=== PATIENT | male | born 1960 | race Caucasian/White ===

== ENCOUNTER → 2016-12-03 | Outpatient (CLI) | payer BC ==
[2016-12-03 10:06] LABS: EKG EKG PERFORMED
[2016-12-03 10:36] LABS: Basophils # (A) 0.1 k/uL (0-0.2); Basophils % (A) 2 %; CH 30.5; CHCM 34.7; Eosinophils # (A) 0.2 k/uL (0-0.7); Eosinophils % (A) 5 %; HCT 41.3 % (39.0-53.0); HDW 2.69; HGB 14.2 gm/dL (13.0-17.5); Luc # (Auto) 0.13; Luc % (Auto) 3; Lymphocytes # (A) 1.4 k/uL (1.0-4.8); Lymphocytes % (A) 36 %; MCH 30.4 pg (25.0-35.0); MCHC 34.4 g/dL (31.0-37.0); MCV 88.3 fL (80.0-100.0); Monocytes # (A) 0.2 k/uL (0-1.0); Monocytes % (A) 6 %; Neutrophils # (A) 1.9 k/uL (1.3-7.7); Neutrophils % (A) 48 %; RBC 4.68 m/uL (4.30-5.90); RDW 13.6 % (11.5-15.5); WBC (Perox) 4.15
[2016-12-03 10:37] LABS: Appearance,Urine Clear (Clear); Bilirubin,Urine Negative (Negative); Glucose,Urine (UA) Negative (Negative); Ketones,Urine Negative (Negative); Leukocyte Esterase,Urine Negative (Negative); Nitrite,Urine Negative (Negative); PH, Urine 7.5 (5.0-8.0); Protein,Urine Negative (Negative); Specific Gravity,Urine 1.009 (1.001-1.035); UA Billing (MACRO vs. MICRO) CHEM; Urobilinogen,Urine <2.0 mg/dL (<2.0)
[2016-12-03 10:42] LABS: Partial Thromboplastin Time 24.1 sec (22.0-30.0); Prothrombin Time 10.2 sec (9.0-12.0)
[2016-12-03 10:53] LABS: ALT 33 U/L (21-72); AST 25 U/L (17-59); Alkaline Phosphatase 82 U/L (38-126); Anion Gap 13 mmol/L; Blood Urea Nitrogen 14 mg/dL (9-20); Calcium 9.6 mg/dL (8.4-10.2); Carbon Dioxide 26 mmol/L (22-30); Chloride 102 mmol/L (98-107); Glucose 102 mg/dL (74-99); Non-African American GFR(MDRD) >60 (>60 ml/min/1.73 sqM); Potassium 3.9 mmol/L (3.5-5.1); Sodium 141 mmol/L (137-145); Total Bilirubin 0.7 mg/dL (0.2-1.3); Total Protein 7.7 g/dL (6.3-8.2)
== END | disposition home or self-care (01) ==
LOC: LABPAT 09:43
PROVIDERS: ATTEND Orthopaedic Surgery Sports Medicine
DX: Z01.810 Encounter for preprocedural cardiovascular examination (principal); Z01.812 Encounter for preprocedural laboratory examination
CPT/HCPCS: 36415; 80053; 81003; 85025; 85610; 85730; 87070; 93005

== ENCOUNTER 2016-12-11 09:36 | Inpatient (IN) | payer BC ==
[2016-12-05 17:04] VITALS: BMI 34.0
[~2016-12-11 09:36] MED LIST: ACETAMINOPHEN TAB 500 MG TAB PO ONE; DEXAMETHASONE SOD PHOSPHATE 10 MG/ML 1 ML VIAL IV ONE; FAMOTIDINE 20 MG/2 ML VIAL IV PRN; HYDROmorphone 1 MG/ML 1 ML SYRINGE IVP PRN; LIDOCAINE 1% 20 ML VIAL (10MG/ML) FOR IV START INTRADERMA PRN; MELOXICAM 7.5 MG TAB PO ONE; MIDAZOLAM 2 MG/2 ML VIAL IV PRN; ONDANSETRON 4 MG/2 ML VIAL IVP ONE; TRANEXAMIC ACID 1,000 MG in SODIUM CHLORIDE 0.9% 100 ML IVPB ONE; ceFAZolin 2 GM in SODIUM CHLORIDE 0.9% 100 ML IVPB ONE
[2016-12-11] MEDS: LACTATED RINGERS 1,000 ML IV SCH ×3 (11:09→23:52)
[2016-12-11] MEDS ORDERED: ePHEDrine 50 MG/ML 1 ML AMP ONE (13:00)
[2016-12-11] MEDS ORDERED: diphenhydrAMINE 50 MG/ML 1 ML VIAL ONE (13:00)
[2016-12-11] MEDS ORDERED: SODIUM CHLORIDE 0.9% 100 ML BAG ONE (13:00)
[2016-12-11] MEDS ORDERED: fentaNYL (PF) 50 MCG/ML 2 ML AMP ONE (13:00)
[2016-12-11] MEDS ORDERED: MIDAZOLAM 2 MG/2 ML VIAL ONE (13:00)
[2016-12-11] MEDS ORDERED: PHENYLEPHRINE-0.9% NACL SYG 1 MG/10 ML SYRINGE ONE (13:00)
[2016-12-11] MEDS ORDERED: TRANEXAMIC ACID 1,000 MG/10 ML VIAL ONE (13:00)
[2016-12-11] MEDS: ROPIVACAINE 246.25 MG, EPINEPHrine 0.5 MG, KETOROLAC 30 MG, cloNIDine HCL/PF 80 MCG, WA... MISCELLANE ONE ×10 (13:35→14:31)
[2016-12-11] MEDS ORDERED: ceFAZolin 3,000 MG in SODIUM CHLORIDE 0.9% IRRIGATIO 3,000 ML IRRIGATION ONE (13:36)
[2016-12-11] MEDS ORDERED: LACTATED RINGERS 1,000 ML IV ONE (13:52)
[2016-12-11] MEDS ORDERED: HYDROcodone/APAP 7.5-325MG 1 EACH TAB PO PRN ×2 (14:38)
[2016-12-11] MEDS ORDERED: MAGNESIUM HYDROXIDE 2,400 MG/10 ML CUP PO PRN (14:38)
[2016-12-11] MEDS ORDERED: hydrOXYzine PAMOATE 25 MG CAP PO PRN (14:38)
[2016-12-11] MEDS ORDERED: TEMAZEPAM 15 MG CAP PO PRN (14:38)
[2016-12-11] MEDS ORDERED: ACETAMINOPHEN TAB 325 MG TAB PO PRN (14:38)
[2016-12-11] MEDS ORDERED: ONDANSETRON 4 MG/2 ML VIAL IVP PRN (14:38)
[2016-12-11] MEDS ORDERED: traMADol 50 MG TAB PO PRN (14:38)
[2016-12-11] MEDS ORDERED: BISACODYL 10 MG SUPP RECTAL PRN (14:38)
[2016-12-11] MEDS ORDERED: NALOXONE 0.4 MG/ML 1 ML VIAL IV PRN ×2 (14:38→15:42)
[2016-12-11] MEDS ORDERED: NA PHOS,M-B/NA PHOS,DI-BA 133 ML ENEMA RECTAL PRN (14:38)
[2016-12-11] MEDS ORDERED: HYDROmorphone 1 MG/ML 1 ML SYRINGE IVP PRN ×3 (14:38)
[2016-12-11] MEDS ORDERED: DIAZEPAM 5 MG TAB PO PRN (14:38)
--- NOTE | 2016-12-11 15:35 | XR ---
EXAMINATION TYPE: XR knee limited LT DATE OF EXAM: 12/11/2016 3:27 PM COMPARISON: NONE TECHNIQUE: One view submitted HISTORY: Post op FINDINGS: There is a prosthetic knee in near anatomic alignment. There is soft tissue edema and emphysema. IMPRESSION: 1. Postoperative change. Appears in near-anatomic alignment
[2016-12-11] MEDS ORDERED: PROMETHAZINE INJ 6.25 MG in SODIUM CHLORIDE 0.9% 50 ML IVPB PRN (15:42)
[2016-12-11] MEDS ORDERED: diphenhydrAMINE 50 MG/ML 1 ML VIAL IVP PRN (15:42)
[2016-12-11] MEDS ORDERED: MORPHINE SULFATE 4 MG/ML SYRINGE IVP PRN (15:42)
[2016-12-11] MEDS ORDERED: METOCLOPRAMIDE 5 MG/ML 2 ML VIAL IVP PRN (15:42)
[2016-12-11] MEDS: ceFAZolin 2 GM in SODIUM CHLORIDE 0.9% 100 ML IVPB SCH (20:58)
[2016-12-11] MEDS: ASPIRIN 325 MG TAB PO SCH (20:58)
[2016-12-11] MEDS ORDERED: SENNOSIDES-DOCUSATE SODIUM 1 EACH TAB PO SCH (21:00)
[2016-12-12 02:21] VITALS: RESP 16
[2016-12-12] MEDS: LACTATED RINGERS 1,000 ML IV SCH ×2 (05:08→05:11)
[2016-12-12] MEDS: ceFAZolin 2 GM in SODIUM CHLORIDE 0.9% 100 ML IVPB SCH (05:09)
[2016-12-12 07:06] LABS: Basophils % (A) 0 %; CH 29.8; CHCM 33.6; Eosinophils % (A) 0 %; HCT 34.2 % (39.0-53.0); HDW 2.62; HGB 11.3 gm/dL (13.0-17.5); Luc % (Auto) 1; Lymphocytes % (A) 13 %; MCH 29.3 pg (25.0-35.0); MCV 88.7 fL (80.0-100.0); Mean Platelet Volume 7.4; Monocytes # (A) 0.4 k/uL (0-1.0); Monocytes % (A) 6 %; Neutrophils % (A) 79 %; RBC 3.85 m/uL (4.30-5.90); RDW 13.7 % (11.5-15.5); WBC 7.6 k/uL (3.8-10.6); WBC (Perox) 8.29
[2016-12-12 07:28] VITALS: BP 141/59; PULSE 77; TEMP 97.9
--- NOTE | 2016-12-12 08:08 | CONS ---
DATE OF CONSULTATION: 12/11/2016 REASON FOR CONSULTATION: Medical management requested Dr. Casanova. CONSULTATION: This is a 55-year-old patient of Dr. Casanova. Chronic stable medical conditions include hyperlipidemia, hypertension. Has undergone a left total knee arthroplasty. Post procedure pain is controlled. Sitting on bed, comfortable. No chest pain or shortness of breath. No nausea or vomiting. Did tolerate a diet. Patient's chronic stable medical conditions include hyperlipidemia, hypertension, arthritis in other joints. REVIEW OF SYSTEMS: CONSTITUTIONAL: None. HEENT: None. RESPIRATORY: None. CARDIOVASCULAR: None. GASTROINTESTINAL: None. GENITOURINARY: None. MUSCULOSKELETAL: Pain in different joints. HEMATOLOGICAL: None. LYMPHATICS: None. PSYCHIATRY: None. NEUROLOGICAL: None. PAST MEDICAL HISTORY: Osteoarthritis, hypertension, hyperlipidemia. PAST SURGICAL HISTORY: Hernia repair, colonoscopy. SOCIAL HISTORY: Patient stopped smoking in 1986. Alcohol none. FAMILY HISTORY: Noncontributory to the presentation. HOME MEDICATIONS: 1. Pravastatin 80 mg q.h.s. 2. Avalide 150/12.5 two tablets p.o. q.h.s. ALLERGIES: None. On examination, temperature 97.4, pulse 84, respirations 14, blood pressure 105/59, pulse ox 96% on room air. GENERAL APPEARANCE: Well built, BMI 34, sitting up, propped in bed, awake. EYES: Pupils equal. Conjunctivae normal. HENT: External appearance of nose and ears normal. Oral cavity normal. NECK: JVD not raised. Mass not palpable. RESPIRATORY: Effort normal. Lungs are clear. CARDIOVASCULAR: First and second sounds normal. No edema. ABDOMEN: Soft, nontender. Liver and spleen not palpable. LYMPHATIC: No lymph nodes palpable in the neck or axillae. PSYCHIATRY: Alert and oriented x3. Mood and affect normal. EXTREMITIES: Left knee in a dressing. Evidence of osteoarthritis of other joints especially the hands. INVESTIGATIONS: No blood work from today. ASSESSMENT: 1. Left total knee arthroplasty. 2. Primary osteoarthritis in other multiple joints. 3. Hyperlipidemia. 4. Essential hypertension. 5. Obesity, body mass index 34.0. PLAN: Home medications are resumed. Patient to hold off his antihypertensive for blood pressure less than 119. DVT prophylaxis in place per Dr. Holland, which include aspirin 325 b.i.d. Care was discussed with the patient. Patient to see a dietitian for weight loss measures. Thank you, Dr. Holland.
--- NOTE | 2016-12-12 08:16 | P.PN ---
Progress Note - Text Date:12/12 Time:712 Patient is status post tkr. Patient seen this morning with VAS score of 0.no c/ o of pruritus, no c/o nausea/vomiting, comfortable and doing well.
--- NOTE | 2016-12-12 08:21 | OP ---
DATE OF SERVICE: 12/11/2016 SURGEON: JEFFREY SIMS MD TOPPIECE CUTTER: JACQUELINE HSU PA-C PREOPERATIVE DIAGNOSIS: Left knee osteoarthrosis. POSTOPERATIVE DIAGNOSIS: Left knee osteoarthrosis. OPERATION: Left total knee arthroplasty. ANESTHESIA: Spinal with sedation. ESTIMATED BLOOD LOSS: 100 mL Tourniquet time: 62 minutes at 250 mmHg. DRAINS: None. DISPOSITION: Postanesthesia care. COMPLICATIONS: None apparent. OPERATIVE FINDINGS: INDICATIONS: Mr. Mathis is a 55-year-old male with long-standing history of left knee pain. History and physical examination are consistent with advanced left knee osteoarthrosis. He has been through significant nonoperative management up to this point. Further treatment options were discussed and he has decided to go forward with the left total knee arthroplasty. The risks of the procedure were discussed with him in detail. These risks include, but are not limited to risk of infection or damage, bleeding, pain, and a small risk of deep vein thrombosis, which could lead to fatal pulmonary embolism. There was also risk of loosening of the implant, which could require revision operation. The patient understands these risks. All of his questions were answered to his satisfaction. Appropriate informed consent was obtained. DESCRIPTION OF THE PROCEDURE: The patient was identified in the preoperative holding area. Surgical site was marked by both the patient and myself. He was given 2 grams of Ancef IV for prophylactic purposes. He was then transferred to the operative suite where he was placed supine on the operating room table. Spinal anesthetic was then administered and dosed per the anesthesia department without apparent complication. Examination under anesthesia was then performed. The patient was 2 to 3 degrees shy of full extension. He had 95 degrees of flexion, and the medial collateral ligament, lateral collateral ligament and posterior cruciate ligaments were stable. The tourniquet was then placed high on the left upper thigh, well-padded in preparation for surgery. The patient's left lower extremity was then prepped and draped usual sterile fashion. Standard surgical pause was then undertaken to ensure that we were operating on the correct site and that appropriate preoperative antibiotics had been given. All staff in the room were in agreement and we proceeded. The outlines of the patella were then marked with a surgical pen. A planned 12 cm vertical incision centered over the patella was marked with a surgical pen. The leg was then exsanguinated with an Esmarch dressing. The knee was then flexed and the tourniquet was inflated to 250 mmHg. Total tourniquet time for the procedure was 62 minutes. Incision was then made with a 10 blade scalpel. Dissection was carried down sharply to the overlying fascia. Great care was taken to minimize skin flaps. The knee was then exposed using a standard medial parapatellar approach. Small cuff of quadriceps tendon was left for suturing. He was in a bit of varus preoperatively. A standard medial release was then made. Superficial medial collateral ligament was dissected off the bone around to the posterior aspect of the proximal tibia. The medial meniscus was then excised as well. The lateral meniscus was also released anteriorly. The leg was then externally rotated. The patella was everted and the knee was flexed. Retractors were then placed to protect the collateral ligaments. I then proceeded to remove the infrapatellar fat pad. This was excised sharply tangentially with the fibers of the patellar tendon. I then proceeded to remove the peripheral osteophytes. This was done with the rongeur. I then proceeded with the distal femoral resection. He did have near full extension. A planned 9 mm resection was done. The femoral canal was then entered in the midline of the femur approximately 10 mm anterior to the origin of the posterior cruciate ligament. The jessica was then advanced down the center of the femur and the jessica was placed intramedullary. Based on preoperative radiographs, the angle between the anatomic and mechanical axis of the femur was approximately 4 to 5 degrees. The valgus angle of distal femoral cutting guide was then set for 4 degrees for the left knee. The distal femoral cutting guide was then advanced over the intramedullary jessica. This was seated firmly against the femur. I then, as mentioned, planned to take 9 mm off the distal femur. The cutting block was then secured onto the femur with pins. The jig was then removed and the distal femoral cut was made through the slot of the block. The pins were then removed and the distal femoral cutting block was removed. The accuracy of the distal femoral cuts was checked with 2 flat bars. I then proceeded with femoral sizing. The posterior referencing sizing guide was held firmly against the resected distal surface of the femur. Posterior condyles were resting on the posterior plane of the guide. The sizing stylus was then placed onto the anterior femur. This was measured at a size 8. I then assessed for femoral rotation. Plan was for 3 degrees of external rotation. 3 degrees of external rotation was placed onto the jig. These holes were then marked. I then confirmed the rotation by 3 separate methods. This was done using the epicondylar axis as well as Whitesides line and posterior referencing. It was deemed that the external rotation was proper. I then went forward with placing femoral cutting block. This was placed over the previously placed pinholes. The romel wing was then placed onto the anterior slots to ensure that we would not notch the anterior femur with the anterior femoral cut. I then proceeded with the anterior femoral cut. This was flushed with the anterior cortex of the femur. Posterior cuts were then made followed by the anterior chamfer cut and then the posterior chamfer cut. Cutting block was then removed. Throughout resection, the collateral ligaments were protected with retractors. I then placed a trial size 8 femur. It fit very nicely medial and lateral and fit flushed with the distal end of the femur. The drill holes were then made. I then proceed with tibial cut. I planned for cruciate retaining knee. The guide was then placed and set for varus and valgus and for slope. The height was set for approximately 2 mm resection from the medial tibial plateau which was a lower side. I was happy with the alignment and the amount of resection. The cutting block was then pinned to the proximal tibia. The alignment jessica was removed from the proximal tibia, it was resected with reciprocating saw. Again this was done with retractors protecting the collateral ligaments as well as posterior cruciate ligament. I then proceeded to evaluate the flexion extension gaps. 10 mm block was placed. Flexion extension gaps were equal. I then proceed with resection of the posterior osteophytes. He had very minimal posterior osteophytes. This was done using a curved osteotome. This resected the posterior osteophytes and posterior capsule stripping was done off the posterior aspect of the femur. At this time, the osteophytes were removed. I then proceeded with resection of the patella. The thickness of the patella was measured using a caliper. The thickness was 22 mm. The thickness of the anticipated patellar dome was taken into account. Resection was then performed and confirmed to be equal in 4 quadrants using the caliper. Approximately 14 mm of bone remained after the resection. A 32 x 8.5 standard patellar trial was then placed. The holes were then drilled and trial was then placed. I then proceeded with sizing the tibial plate. A size F tibial plate fit very nicely. I then placed a trial femur, the tibial tray and the patellar button. A 10 mm trial tibial insert was also placed. The components fit very nicely. He had full flexion and extension. The extension and flexion gaps were equal and stable to both varus and valgus stress. The patella tracked appropriately. The tibial tray rotation was marked with a Bovie. This was externally rotated properly. I then proceeded with tibial preparation. I first drilled femoral holes and removed femoral component. The tibial tray was then set for proper external rotation as well as mediolateral placement onto the tibia. It was then pinned into place. I proceeded then proceeded with punching the keel. I then decided to proceed with cementing of all of our components. The knee was thoroughly irrigated with sterile saline solution via pulse lavage. The lateral geniculate artery was identified and cauterized. All blood was removed from the bone of the tibia, femur and patella with pulse lavage. I then proceeded with cementing it. 2 packs of antibiotic bone cement were prepared on the back table by the surgical pathologist. I then proceeded with cementing of the tibia first. The cement was impacted in the keel as well as deeply seated in bone. A second coat of cement was then placed. The tibia was then impacted into place. Excess cement was removed with Milton's and jokers. I then proceeded with cementing of the femoral component. The femoral component was also cemented using standard technique. Excess cement was removed. A 10 mm trial insert was then placed into the knee. It was brought into full extension with a constant axial load placed until the cement had hardened. The patellar component was then cemented. This was held firmly with a compressive device until the cement had dried. When the cement had dried, the knee was taken out of extension. All excess cement was removed from around the prosthesis. Trialed the knee with a 10 mm insert. The flexion-extension gaps were felt very good. The knee was stable. It came into full extension. I decided to go forward with a 10 mm cross-linked medial congruent cruciate-retaining tibial insert. Polyethylene was then placed onto the tray and locked. The knee was then reduced. The knee was again further irrigated with sterile saline solution with antibiotic added. The tourniquet was then deflated. Total tourniquet time for the procedure was 62 minutes at 250 mmHg. Final components were a Elias persona size an 8 cruciate-retaining femoral component, a size F tibial tray, a 10 mm cruciate retaining polyethylene insert and a 32 x 8.5 standard patellar button. I then proceeded with closure. Again, the knee was thoroughly irrigated. The quadriceps tendon and the medial retinaculum were reapproximated with #2 Ethibond suture. The extensor mechanism was then closed with running #2 Quill suture. Subcutaneous tissues were then closed with 2-0 Vicryl interrupted suture. The skin was closed with a running 3-0 Quill suture. Dermabond was applied to the incision. Sterile compressive dressings were then applied. All sponge and needle counts were deemed correct prior to closure. The patient tolerated the procedure without apparent complication. He was transferred to recovery room in stable condition.
[2016-12-12] MEDS: ASPIRIN 325 MG TAB PO SCH (08:26)
--- NOTE | 2016-12-12 09:44 | P.DS ---
Providers Date of admission: 12/11/16 10:48 Expected date of discharge: 12/12/16 Attending physician: Freddy Holland Consults: 12/11/16 14:38 Consult Physician Routine Consulting Provider: Milton Hamm Consult Reason/Comments: post op medical management Do you want consulting provider notified?: Yes Primary care physician: [facility] Hospital Course: Patient was admitted to the OR on December 112001 to undergo left total knee arthroplasty per Dr. Holland. He had failed conservative measures as an outpatient and desired to proceed with elective surgery after giving informed consent. He underwent the above procedure which she tolerated well without complication. His postoperative hospital course has remained without complication. On day of discharge he desires discharge to home. On day of discharge he is afebrile, vital signs are stable, labs within acceptable ranges , wound is benign, neurovascular status is intact, abdomen is soft and nontender , calf is soft and nontender, he is denying new complaints, he is tolerating by mouth meds and diet, positive flatus, and voiding without difficulty. Review of systems is negative for fever, chills, chest pain, shortness of breath, cough , numbness, tingling nausea, vomiting, headaches, dizziness, rashes, bleeding, slurred speech or other Procedures: Left total knee arthroplasty Patient Condition at Discharge: Good Plan - Discharge Summary New Discharge Prescriptions: Aspirin 325 mg PO BID #60 tab Docusate [Colace] 100 mg PO BID PRN #60 capsule PRN Reason: Constipation HYDROcodone/APAP 7.5-325MG [Boyce 7.5-325] 1 - 2 each PO Q6HR PRN #90 tab PRN Reason: Pain Discharge Medication List Irbesartan/Hydrochlorothiazide [Avalide 150-12.5 mg Tablet] 2 tab PO HS [History] Pravastatin Sodium 80 mg PO HS 12/05/16 [History] Aspirin 325 mg PO BID #60 tab 12/12/16 [Rx] Docusate [Colace] 100 mg PO BID PRN #60 capsule 12/12/16 [Rx] HYDROcodone/APAP 7.5-325MG [Boyce 7.5-325] 1 - 2 each PO Q6HR PRN #90 tab [Rx] Follow up Appointment(s)/Referral(s): Freddy Holland MD [STAFF PHYSICIAN] - 2 Weeks Activity/Diet/Wound Care/Special Instructions: Keep Wound clean and dry Take meds as directed Follow-up with Dr. Holland in office, [phone] Weight-bear as tolerated May take shower after 72 hours Discharge Disposition: HOME WITH HOME HEALTH SERVICES
[2016-12-12] MEDS ORDERED: MULTIVITAMINS, THERA 1 EACH TAB PO SCH (12:00)
[2016-12-12] MEDS ORDERED: LOSARTAN-HCTZ 50-12.5 MG 1 EACH TAB PO SCH (21:00)
[2016-12-12] MEDS ORDERED: PRAVASTATIN SODIUM 80 MG TAB PO SCH (21:00)
--- NOTE | 2016-12-13 09:41 | PN ---
DATE OF SERVICE: 12/12/2016 PRESENTING COMPLAINT: Left knee surgery. INTERVAL HISTORY: This patient was seen by me yesterday on 12/12/2016 status post left knee surgery, doing much better, comfortable. No chest pain, shortness of breath. Did tolerate breakfast. Did work with physical therapy. Review of systems done for constitutional, cardiovascular, GI, pulmonary; relevant findings as above. Current medications are reviewed. On examination, temperature 97.9, pulse 77, respiration 16, blood pressure 140/79, pulse 97%. GENERAL APPEARANCE: Sitting up, comfortable. EYES: Pupils equal. Conjunctivae normal. NECK: JVD not raised. Mass not palpable. RESPIRATORY: Effort normal. Lungs are clear. CARDIOVASCULAR: First and second sounds normal. ABDOMEN: Soft, nontender. Liver and spleen not palpable. PSYCHIATRY: Alert and oriented x3. Mood and affect normal. INVESTIGATIONS: Hemoglobin 11.3. ASSESSMENT: 1. Left total knee arthroplasty. 2. Primary osteoarthritis in multiple joints. 3. Hyperlipidemia. 4. Essential hypertension. 5. Obesity; body mass index mass index of 34. PLAN: Patient is doing well. Continue current medication and treatment.
== END 2016-12-12 15:15 | disposition home health service (06) | DRG 470 ==
LOC: 2ORMAIN 10:48 → 2CATHESU 12:55 → 2ORMAIN 12:56 → 3SUR 15:10
PROVIDERS: ADMIT Orthopaedic Surgery Sports Medicine; ATTEND Orthopaedic Surgery Sports Medicine
PROC: 0SRD0J9 Replacement of Left Knee Joint with Synthetic Substitute, Cemented, Open Approach (ICD-10-PCS; principal; 2016-12-11 12:30)
DX: M17.12 Unilateral primary osteoarthritis, left knee (principal); I10 Essential (primary) hypertension; E78.5 Hyperlipidemia, unspecified; M19.042 Primary osteoarthritis, left hand; M21.162 Varus deformity, not elsewhere classified, left knee; M79.4 Hypertrophy of (infrapatellar) fat pad; M25.762 Osteophyte, left knee; M19.041 Primary osteoarthritis, right hand; J45.909 Unspecified asthma, uncomplicated; Z87.891 Personal history of nicotine dependence; Z79.899 Other long term (current) drug therapy; Z71.3 Dietary counseling and surveillance; Z79.1 Long term (current) use of non-steroidal anti-inflammatories (NSAID); Z83.3 Family history of diabetes mellitus; Z82.49 Family history of ischemic heart disease and other diseases of the circulatory system
CPT/HCPCS: 85025; 88300